=== PATIENT | female | born 1940 | race Caucasian/White ===

== ENCOUNTER → 2017-01-05 | Outpatient (CLI) | payer OTHER ==
[~2017-01-05] MED LIST: ASPIR 8181 M1 PO; ATENOLOL100 MG PO; CENTRUM SILVER1 EAC4 PO; GLUCOPHAGE500 MG PO; MAG6464 M2 PO; NORVASC5 MG PO; VITAMIN B12-FO1 EACH PO; VITAMIN D2000 UNIT PO
== END | disposition home or self-care (01) ==
LOC: OPR 09:41 → EDSTATUS 10:00
PROC: 0BBF3ZX Excision of Right Lower Lung Lobe, Percutaneous Approach, Diagnostic (ICD-10-PCS; principal; 2017-01-05)
DX: C34.31 Malignant neoplasm of lower lobe, right bronchus or lung (principal)
CPT/HCPCS: 71010; 77012; 88305; 88341 TC; 88342 TC; J3010

== ENCOUNTER → 2017-06-04 | Outpatient (CLI) | payer OTHER ==
[~2017-06-04] MED LIST changes: +SPIRIVA RESPIMAT4 G1 IH
== END | disposition home or self-care (01) ==
DX: C34.90 Malignant neoplasm of unspecified part of unspecified bronchus or lung (principal); K21.9 Gastro-esophageal reflux disease without esophagitis; R13.11 Dysphagia, oral phase; R13.13 Dysphagia, pharyngeal phase
CPT/HCPCS: 92611 GN; G8996 GN; G8997 GN; G8998 GN

== ENCOUNTER 2017-08-31 13:35 | Inpatient (IN) | payer OTHER ==
[~2017-08-31] VITALS: Ht 172.7 cm; Wt 70.8 kg
[2017-08-31 14:33] LABS: HEMATOCRIT 34.1 % (36.0-46.0); MCH 30.1 PG (29.0-34.0); MCHC 32.8 G/DL (30.0-36.0); MCV 91.7 FL (83-99); MEAN PLAT.VOLUME 9.7 uM^3 (9.5-12.4); PLATELET COUNT 196 K/uL (156-360); RBC DIS.WIDTH-CV 14.8 % (11.8-14.6); RBC DIS.WIDTH-SD 49.5 % (39-53); RED BLOOD COUNT 3.72 M/uL (3.80-5.20); WHITE BLOOD COUNT 19.3 K/uL (4.1-10.2)
[2017-08-31 14:41] LABS: CHLORIDE 103 mEq/L (99-109); POTASSIUM 4.7 mEq/L (3.7-5.4); SODIUM 135 mEq/L (136-147)
[2017-08-31 14:43] LABS: GLUCOSE 320 mg/dL (70-99)
[2017-08-31 14:44] LABS: ANION GAP 15 MEQ/L (2-14)
[2017-08-31 14:47] LABS: GFR ESTIMATE (CALCULATED) 57 mL/min/; UREA NITROGEN (BUN) 36 mg/dL (9-23)
[2017-08-31] MEDS ORDERED: ADVAIR 250/501 DISK IH (16:26)
[2017-08-31] MEDS ORDERED: ZOLPIDEM TARTRA10 MG PO (16:27)
[2017-08-31] MEDS ORDERED: PROAIR HFA8.5 GM IH (16:29)
[2017-08-31] MEDS ORDERED: DECADRON4 MG PO (16:42)
[2017-08-31] MEDS ORDERED: METFORMIN HCL500 M1 PO (16:46)
[2017-08-31 17:54] LABS: ADD MIUA? NO; BILIRUBIN NEGATIVE; BLOOD NEGATIVE; COLOR STRAW ((YELLOW)); GLUCOSE (STRIP) >=500; KETONES NEGATIVE; LEUKOCYTES NEGATIVE; NITRITE NEGATIVE; PROTEIN (STRIP) NEGATIVE; SPECIFIC GRAVITY 1.013 (1.000-1.030); UCUL ADDED? NO; UROBILINOGEN 0.2 MG/DL (0.2-1.0)
[2017-08-31 18:35] VITALS: BP 179/77
[2017-08-31 22:03] LABS: POINT-OF-CARE METER ID UU14174225
[2017-08-31 23:36] VITALS: BP 130/56
[2017-09-01 06:03] LABS: HEMATOCRIT 31.4 % (36.0-46.0); MCH 30.4 PG (29.0-34.0); MCHC 32.8 G/DL (30.0-36.0); MCV 92.6 FL (83-99); MEAN PLAT.VOLUME 10.2 uM^3 (9.5-12.4); PLATELET COUNT 170 K/uL (156-360); RBC DIS.WIDTH-CV 14.8 % (11.8-14.6); RBC DIS.WIDTH-SD 50.8 % (39-53); RED BLOOD COUNT 3.39 M/uL (3.80-5.20); WHITE BLOOD COUNT 10.3 K/uL (4.1-10.2)
[2017-09-01 06:28] LABS: ANION GAP 11 MEQ/L (2-14); CHLORIDE 106 MEQ/L (99-109); GFR ESTIMATE (CALCULATED) 57 mL/min/; GLUCOSE 215 mg/dL (70-99); POTASSIUM 4.6 MEQ/L (3.7-5.4); SAMPLE HEMOLYSIS CHECK 0; SAMPLE ICTERIC CHECK 0; SAMPLE LIPEMIA CHECK 0; SODIUM 139 MEQ/L (136-147); UREA NITROGEN (BUN) 36 mg/dL (9-23)
[2017-09-01 06:59] VITALS: BP 183/78
[2017-09-01 07:04] LABS: POINT-OF-CARE METER ID UU13113717
[2017-09-01 11:05] LABS: POINT-OF-CARE METER ID UU13113717
[2017-09-01 11:10] VITALS: BP 162/79
[2017-09-01 15:11] VITALS: BP 153/67
[2017-09-01 16:23] LABS: POINT-OF-CARE METER ID UU14188625
[2017-09-01 19:25] VITALS: BP 180/84
[2017-09-01 20:01] VITALS: BP 150/78
[2017-09-01 22:10] LABS: POINT-OF-CARE METER ID UU14174225
[2017-09-02 00:30] VITALS: BP 123/75
[2017-09-02 08:05] VITALS: BP 142/63
[2017-09-02 08:56] LABS: POINT-OF-CARE METER ID UU14188625
[2017-09-02 11:46] LABS: POINT-OF-CARE METER ID UU14188625
[2017-09-02 11:48] VITALS: BP 133/74
[2017-09-02 15:20] VITALS: BP 128/63
[2017-09-02 16:57] LABS: POINT-OF-CARE METER ID UU14174225
[2017-09-02 19:51] VITALS: BP 143/70
[2017-09-02 21:39] LABS: POINT-OF-CARE METER ID UU13113717
[2017-09-03 00:28] VITALS: BP 137/93
[2017-09-03 04:44] VITALS: BP 134/60
[2017-09-03 07:37] VITALS: BP 140/72
[2017-09-03 09:13] LABS: POINT-OF-CARE METER ID UU14174225
[2017-09-03 11:03] VITALS: BP 142/70
[2017-09-03 11:42] LABS: POINT-OF-CARE METER ID UU13113717
== END 2017-09-03 16:30 | disposition home or self-care (01) | DRG 54 ==
LOC: EME 13:35 → 5SOUTH 15:44 → EDOF 15:44 → ENRESERV 15:45 → 5SOUTH 18:00
PROVIDERS: Emergency Medicine; Internal Medicine
DX: C79.31 Secondary malignant neoplasm of brain (principal); G93.6 Cerebral edema; E87.2 Acidosis; D63.8 Anemia in other chronic diseases classified elsewhere; E11.9 Type 2 diabetes mellitus without complications; I10 Essential (primary) hypertension; J44.9 Chronic obstructive pulmonary disease, unspecified; F41.9 Anxiety disorder, unspecified; Z79.84 Long term (current) use of oral hypoglycemic drugs; Z79.82 Long term (current) use of aspirin; Z85.118 Personal history of other malignant neoplasm of bronchus and lung; Z87.891 Personal history of nicotine dependence; Z92.21 Personal history of antineoplastic chemotherapy; Z92.3 Personal history of irradiation; Z90.710 Acquired absence of both cervix and uterus
CPT/HCPCS: 70450; 70553; 71020; 77280; 77290; 77307; 77334; 77412; 80048; 81003; 82948; 85027; 87040; 94640; 94640 76; 97530 GO; 99202; 99281; 99285; J1100; J1650; J1815; J2060; J7030; S0028